=== PATIENT | female | born 1985 | race Caucasian/White ===

== ENCOUNTER 2019-05-07 19:52 | Emergency (ER) | payer BC, OTHER ==
[2019-05-07] MEDS ORDERED: XYLOCAINE 1% HCL 20 ML MDV IJ ONE (19:53)
--- NOTE | 2019-05-07 19:55 | ERPHSYRPT ---
- History of Present Illness Time Seen by Provider: 05/07/19 19:55 Source: patient, family Exam Limitations: no limitations Physician History: This is a 34-year-old white female who presents with sore throat and bilateral earaches. Onset was this morning. Symptoms have worsened throughout the day. Patient denies nausea vomiting diarrhea. She denies chest pain and she denies abdominal pain. However she does have myalgias and arthralgias. She has no known exposures to individuals with flu like symptoms. Patient has history of recurrent strep throat and ear infections. Timing/Duration: today Possible Cause: occasional episodes Associated Symptoms: earache (Bilateral), sore throat, No chest pain/soreness, No cough Allergies/Adverse Reactions: No Known Drug Allergies Allergy (Unverified 06/19/15 19:32) Home Medications: No Home Meds [No Home Meds] 1 ea UD 06/19/15 [History] Hx Tetanus, Diphtheria Vaccination/Date Given: No Hx Influenza Vaccination/Date Given: No Hx Pneumococcal Vaccination/Date Given: No - Review of Systems Constitutional: No Symptoms Eyes: No Symptoms Ears, Nose, & Throat: Ear Pain (Bilateral), Throat Pain Respiratory: No Symptoms Cardiac: No Symptoms Abdominal/Gastrointestinal: No Symptoms Genitourinary Symptoms: No Symptoms Musculoskeletal: No Symptoms Skin: No Symptoms Neurological: No Symptoms Psychological: No Symptoms Endocrine: No Symptoms Hematologic/Lymphatic: No Symptoms Immunological/Allergic: No Symptoms All Other Systems: Reviewed and Negative - Past Medical History Pertinent Past Medical History: Yes Neurological History: No Pertinent History ENT History: No Pertinent History Cardiac History: No Pertinent History Respiratory History: No Pertinent History Endocrine Medical History: No Pertinent History Musculoskeletal History: No Pertinent History GI Medical History: Gallbladder Disease History: No Pertinent History Psycho-Social History: Depression Female Reproductive Disorders: No Pertinent History Other Medical History: DEPRESSION - Past Surgical History Past Surgical History: Yes Neuro Surgical History: No Pertinent History Cardiac: No Pertinent History Respiratory: No Pertinent History Gastrointestinal: Cholecystectomy Genitourinary: No Pertinent History Musculoskeletal: No Pertinent History Female Surgical History: Section Other Surgical History: GALLBLADDER,C-SECTONS - Social History Smoking Status: Current every day smoker How long have you smoked: 15 YEARS Exposure to second hand smoke: No Drug Use: none Patient Lives Alone: No - Nursing Vital Signs Nursing Vital Signs: Initial Vital Signs Temperature 98.1 F 05/07/19 20:19 Pulse Rate 79 05/07/19 20:19 Respiratory Rate 18 05/07/19 20:19 Blood Pressure 134/77 05/07/19 20:19 O2 Sat by Pulse Oximetry 99 05/07/19 20:19 Pain Scale Pain Intensity 8 - Physical Exam General Appearance: no apparent distress, alert, anxiety Eye Exam: PERRL/EOMI, eyes nml inspection Ears, Nose, Throat Exam: TMs normal (Left is red), moist mucous membranes, pharyngeal erythema Neck Exam: normal inspection (Mild), non-tender, supple, full range of motion Respiratory Exam: normal breath sounds, lungs clear, airway intact, No chest tenderness, No respiratory distress Cardiovascular Exam: regular rate/rhythm, normal heart sounds Gastrointestinal/Abdomen Exam: soft, normal bowel sounds, No tenderness Pelvic Exam: not done Rectal Exam: not done Back Exam: normal inspection, normal range of motion, No CVA tenderness, No vertebral tenderness Extremity Exam: normal inspection, normal range of motion, pelvis stable Neurologic Exam: alert, oriented x 3, cooperative, 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 Skin Exam: normal color, warm, dry Lymphatic Exam: No adenopathy SpO2 Interpretation: normal O2 Delivery: Room Air Ordered Tests: Medication Summary Discontinued Medications Generic Name Dose Route Start Last Admin Trade Name Markusq PRN Reason Stop Dose Admin Hydrocodone Bitart/Acetaminophen 10 ml 05/07/19 21:58 Hydrocodone-Acetamin 2.5-108/5 Ml Solution PO 05/07/19 21:59 STAT STA Ceftriaxone Sodium 1,000 mg 05/07/19 21:55 Rocephin 1000 Mg Inj IM 05/07/19 21:56 STAT ONE Methylprednisolone Sodium Succinate 125 mg 05/07/19 21:57 Solu-Medrol 125 Mg IM 05/07/19 21:58 STAT ONE Lab/Rad Data: Laboratory Results 05/07/19 Range/Units Unknown Influenza Type A Ag NEGATIVE (NEGATIVE) Influenza Type B Ag NEGATIVE (NEGATIVE) RSV (PCR) NEGATIVE (Negative) Group A Strep Antibody NEGATIVE (NEGATIVE) - Progress Progress: unchanged Air Movement: good Blood Culture(s) Obtained: No Antibiotics given: Yes Counseled pt/family regarding: lab results, diagnosis, need for follow-up - Departure Departure Disposition: Home Clinical Impression: Pharyngitis, Left otitis media Condition: Stable Critical Care Time: No Additional Instructions: Plenty of fluids. Follow-up with your primary care physician for persistent symptoms Prescriptions: Azithromycin 250 mg [Zithromax 250 MG TABLET] 250 mg PO ZPACK #6 tablet Hydrocodone Bit/Acetaminophen [Hydrocodone-Acetaminophen Soln] 10 ml PO Q6H # 120 ml Prednisone 10 mg [Deltasone 10 mg] 10 mg PO TID #12 tablet
[2019-05-07 21:38] LABS: Group A Strep NEGATIVE (NEGATIVE); INFLUENZA A NEGATIVE (NEGATIVE); INFLUENZA B NEGATIVE (NEGATIVE); RESPIRATORY SYNCTIAL VIRUS NEGATIVE (Negative)
[2019-05-07] MEDS ORDERED: Rocephin 1000 MG INJ IM ONE (21:55)
[2019-05-07] MEDS ORDERED: solu-MEDROL 125 MG IM ONE (21:57)
[2019-05-07] MEDS ORDERED: HYDROCODONE-ACETAMIN 2.5-108/5 ML SOLUTION PO STA (21:58)
[2019-05-07] MEDS ORDERED: Rocephin 1000 MG INJ ONE (22:23)
[2019-05-07] MEDS ORDERED: solu-MEDROL 125 MG ONE (22:23)
[2019-05-07] MEDS ORDERED: HYDROCODONE-ACETAMIN 2.5-108/5 ML SOLUTION ONE (22:23)
[2019-05-07 22:46] VITALS: BP 115/92; PULSE 90; O2SAT 97
== END 2019-05-07 22:52 | disposition home or self-care (01) ==
LOC: ED 19:52
DX: J02.9 Acute pharyngitis, unspecified (principal); H66.92 Otitis media, unspecified, left ear
CPT/HCPCS: 87631; 87651; 96372; 99284; J0696; J2930; A9270-GY

== ENCOUNTER 2020-11-05 11:21 | Emergency (ER) | payer SELFPAY ==
[2020-11-05] MEDS ORDERED: Robitussin AC Syrup Unit Dose Cup PO PRN (12:24)
--- NOTE | 2020-11-05 12:30 | ERPHSYRPT ---
- History of Present Illness Time Seen by Provider: 11/05/20 12:28 Source: patient Exam Limitations: no limitations Patient Subjective Stated Complaint: Pt c/o of headache, N&V, loss of taste and smell, body aches, fatigue, since this AM and a cough and congestion for the past couple of days Triage Nursing Assessment: Pt was brought to the ER by her , vitals wnl, rates overall pain as 6/10, chest pain when she coughs, body aches, N&V, fa tigue, congestion, pulses normal, skin n/w/d, doesn't appear to be in any distress Physician History: Pt c/o of headache, N&V, loss of taste and smell, body aches, fatigue, since this AM and a cough and congestion for the past couple of days. Denies any COVID exposure, No COVID Vaccine Timing/Duration: day(s) (past two days) Severity: moderate Associated Symptoms: nausea, vomiting, headaches, malaise Allergies/Adverse Reactions: No Known Drug Allergies Allergy (Verified 11/05/20 11:36) Hx Tetanus, Diphtheria Vaccination/Date Given: No Hx Influenza Vaccination/Date Given: No Hx Pneumococcal Vaccination/Date Given: No Travel Risk - International Travel Have you traveled outside of the country in past 3 weeks: No - Coronavirus Screening Are you exhibiting any of the following symptoms?: Yes Symptoms: Cough: New Onset, Shortness of Breath, Vomiting/Diarrhea, Loss of Taste or Smell, Headaches/Body Aches/Fatigue - Vaccine Status Have you recieved a Covid-19 vaccination: No - Review of Systems Constitutional: Malaise, No Fever, No Chills Eyes: No Symptoms Ears, Nose, & Throat: No Symptoms Respiratory: No Cough, No Dyspnea Cardiac: No Chest Pain, No Edema, No Syncope Abdominal/Gastrointestinal: Nausea, Vomiting, No Abdominal Pain, No Diarrhea Genitourinary Symptoms: No Dysuria Musculoskeletal: No Back Pain, No Neck Pain Skin: No Rash Neurological: No Dizziness, No Focal Weakness, No Sensory Changes Psychological: No Symptoms Endocrine: No Symptoms All Other Systems: Reviewed and Negative - Past Medical History Pertinent Past Medical History: Yes Neurological History: No Pertinent History ENT History: No Pertinent History Cardiac History: No Pertinent History Respiratory History: No Pertinent History Endocrine Medical History: No Pertinent History Musculoskeletal History: No Pertinent History GI Medical History: Gallbladder Disease History: No Pertinent History Psycho-Social History: Depression Female Reproductive Disorders: No Pertinent History Other Medical History: DEPRESSION - Past Surgical History Past Surgical History: Yes Neuro Surgical History: No Pertinent History Cardiac: No Pertinent History Respiratory: No Pertinent History Gastrointestinal: Cholecystectomy Genitourinary: No Pertinent History Musculoskeletal: No Pertinent History Female Surgical History: Section Other Surgical History: GALLBLADDER,C-SECTONS - Social History Smoking Status: Current every day smoker How long have you smoked: 15 YEARS Exposure to second hand smoke: Yes Drug Use: none Patient Lives Alone: No - Female History Hx Last Menstrual Period: 11/02/2020 Hx Now: No - Nursing Vital Signs Nursing Vital Signs: Initial Vital Signs Temperature 98.2 F 11/05/20 11:27 Pulse Rate 75 11/05/20 11:27 Blood Pressure 135/84 11/05/20 11:27 O2 Sat by Pulse Oximetry 99 11/05/20 11:27 Pain Scale Pain Intensity 6 - Physical Exam General Appearance: no apparent distress, alert Eye Exam: PERRL/EOMI, eyes nml inspection Ears, Nose, Throat Exam: normal ENT inspection, TMs normal, pharynx normal, moist mucous membranes Neck Exam: normal inspection, non-tender, supple, full range of motion Respiratory Exam: diminished breath sounds, wheezing, No respiratory distress Cardiovascular Exam: regular rate/rhythm, normal heart sounds, normal peripheral pulses Gastrointestinal/Abdomen Exam: soft, normal bowel sounds, No tenderness, No mass Back Exam: normal inspection, normal range of motion, No CVA tenderness, No vertebral tenderness Extremity Exam: normal inspection, normal range of motion, pelvis stable Neurologic Exam: alert, oriented x 3, cooperative, normal mood/affect, nml cerebellar function, nml station & gait, sensation nml, No motor deficits Skin Exam: normal color, warm, dry, No rash Lymphatic Exam: No adenopathy SpO2: 99 - Course Nursing assessment & vital signs reviewed: Yes - Radiology Exams Chest X-ray Interpretation: Reviewed by me (no acute infiltrate) Ordered Tests: Active Orders 24 hr Category Date Time Status Isolation, Initiate & Maintain STAT Care 11/05/20 12:21 Active CHEST 1 VIEW (PORTABLE) Stat Exams 11/05/20 12:23 Taken CBC Stat Lab 11/05/20 13:00 Completed CMP Stat Lab 11/05/20 13:00 Completed D-DIMER QUANTITATIVE Stat Lab 11/05/20 13:00 Completed Medication Summary Generic Name Dose Route Start Last Admin Trade Name Freq PRN Reason Stop Dose Admin Guaifenesin/Codeine Phosphate 10 ml 11/05/20 12:24 Robitussin Ac Syrup Unit Dose Cup PO 12/05/20 12:23 QIDP PRN COUGH Lab/Rad Data: Laboratory Result Diagrams 11/05/20 13:00 11/05/20 13:00 Laboratory Results 11/05/20 11/05/20 11/05/20 Range/Units 13:00 13:00 13:00 WBC 7.9 (4.0-10.5) K/mm3 RBC 4.49 (4.1-5.4) M/mm3 Hgb 14.6 (12.0-16.0) gm/dl Hct 43.0 (35-47) % MCV 95.8 (78-100) fl MCH 32.5 H (26-32) pg MCHC 34.0 (32-36) g/dl RDW 12.5 (11.5-14.0) % Plt Count 262 (150-450) K/mm3 MPV 9.8 (7.5-11.0) fl D-Dimer 557 H* (215-500) ng/mL Sodium 141 (137-145) mmol/L Potassium 4.0 (3.5-5.1) mmol/L Chloride 107 (98-107) mmol/L Carbon Dioxide 24 (22-30) mmol/L Anion Gap 14.4 (5-15) MEQ/L BUN 7 (7-17) mg/dL Creatinine 0.76 (0.52-1.04) mg/dL Estimated GFR > 60.0 ML/MIN Glucose 90 (74-106) mg/dL Calcium 8.7 (8.4-10.2) mg/dL Total Bilirubin 0.30 (0.2-1.3) mg/dL AST 42 H (14-36) U/L ALT 30 (0-35) U/L Alkaline Phosphatase 84 (38-126) U/L Serum Total Protein 7.6 (6.3-8.2) g/dL Albumin 4.3 (3.5-5.0) g/dL - Progress Progress: improved Counseled pt/family regarding: lab results, diagnosis, need for follow-up, rad results - Departure Departure Disposition: Home Clinical Impression: Suspected COVID-19 virus infection Condition: Stable Critical Care Time: No Referrals: CLARK ARTHUR [Primary Care Provider] - Follow Up with PCP/3 days Instructions: Coronavirus Disease 2019 (COVID-19) (DC) Additional Instructions: Discharge/Care Plan LORELEI BASS was seen on 11/05/20 in the Emergency Room. The patient was counseled regarding Diagnosis,Lab results, Imaging studies, need for follow up and when to return to the Emergency Room. Prescriptions given: Discharge Note I have spoken with the patient and/or caregivers. I have explained the patient's condition, diagnosis and treatment plan based on the information available to me at this time. I have answered the patient's and/or caregiver's questions and addressed any concerns. The patient and/or caregivers have as good understanding of the patient's diagnosis, condition and treatment plan as can be expected at this point. The vital signs have been stable. The patient's condition is stable and appropriate for discharge from the emergency department. The patient will pursue further outpatient evaluation with the primary care physician or other designated or consulting physician as outlined in the discharge instructions. The patient and/or caregivers are agreeable to this plan of care and follow-up instructions have been explained in detail. The patient and/or caregivers have received these instruction. The patient/and or caregivers are aware that any significant change in condition or worsening of symptoms should prompt an immediate return to this or the closest emergency department or call 911. LORELEI BASS was seen on 11/05/20 n the Emergency Room. At that time you were treated for an emergent condition, during your visit Laboratory, Radiology and/or other procedures may have been ordered. It is very important that you follow-up with your Primary Care Physician CLARK ARTHUR within the next 24-48 hours to review your Emergency Room visit and the final results of testing that was ordered. Some test results such as Urine Cultures, Blood Cultures, and other cultures if ordered will not be finalized for 24-48 hours. If you do not have a Primary Care Provider please call the medical records department at [phone] to obtain a copy of your results or you may sign into our patient portal to obtain these results by visiting us @ [email or web address] and completing the following steps: 1. Click on the Patient Portal link 2. Click the Patient Self Enrollment Link to complete the enrollment form and entering your 3. Once the enrollment form is completed you will receive an email with a temporary ID and password at the email address you provided. 4. Next choose a user name and password. Your user name must be at least 4 characters long and your password must be at least 4 characters long. 5. Choose a security question from the list and provide your answer to the question. If you already have signed into the Health Portal you may access your Health Care Information 30/09 by the following steps: 1. Login to our website @ [email or web address] 2. Enter your original user name and password. FAQS [facility] Health Portal is an online tool that contains your Lab Results, Radiology Reports, Visit History, Discharge Instructions and Health Summary Lab and Radiology Results will not be available for 72 hours on the portal. The Portal is a secure site, passwords are encryted and URLs are re-written so they cannot be copied and pasted. You and authorized family members are the only ones who can access your Portal. Also there is a timeout feature that protects your information if you leave the Portal page open. If you have technical difficulty please use the Contact Us link on the page this will allow you to submit any questions you have regarding the Portal or you may contact the Medical Record Department at [phone]. Prescriptions: Methylprednisolone Packet [Medrol Dosepack] 4 mg PO UD #30 packet Guaifenesin/Dextromethorphan [Mucinex Dm ER 600-30 mg Tablet] 1 each PO BID #20 tablet Azithromycin [Zithromax] 250 mg PO UD #6 tablet
[2020-11-05 13:12] LABS: Hemoglobin 14.6 gm/dl (12.0-16.0); Mean Cell Volume 95.8 fl (78-100); Mean Corpuscular Hemoglobin 32.5 pg (26-32); Mean Platelet Volume 9.8 fl (7.5-11.0); Platelet Count 262 K/mm3 (150-450); Red Blood Count 4.49 M/mm3 (4.1-5.4); Red Cell Distribution Width 12.5 % (11.5-14.0); White Blood Count 7.9 K/mm3 (4.0-10.5)
[2020-11-05 13:20] LABS: ALBUMIN 4.3 g/dL (3.5-5.0); ALKALINE PHOSPHATASE 84 U/L (38-126); ANION GAP 14.4 MEQ/L (5-15); BLOOD UREA NITROGEN 7 mg/dL (7-17); CHLORIDE 107 mmol/L (98-107); Calcium 8.7 mg/dL (8.4-10.2); Carbon Dioxide 24 mmol/L (22-30); Creatinine 1 0.76 mg/dL (0.52-1.04); EST GLOMERULAR FILTRATION RATE > 60.0 ML/MIN; Glucose 90 mg/dL (74-106); SGOT/AST 42 U/L (14-36); SGPT/ALT 30 U/L (0-35); SODIUM 141 mmol/L (137-145); Total Protein 7.6 g/dL (6.3-8.2)
[2020-11-05] MEDS ORDERED: Rocephin 1000 MG INJ IM ONE (13:30)
[2020-11-05] MEDS ORDERED: Rocephin 1000 MG INJ ONE (13:44)
[2020-11-05] MEDS ORDERED: XYLOCAINE 1% HCL 20 ML MDV ONE (13:44)
[2020-11-05] MEDS ORDERED: Robitussin AC Syrup Unit Dose Cup ONE (13:44)
[2020-11-05 14:44] VITALS: BP 144/96; PULSE 70; O2SAT 98
--- NOTE | 2020-11-05 18:54 | XRAY ---
Indication: Cough. Suspect covid 19. Comparison: None Portable chest clear. Heart and mediastinal structures within normal limits. Bony thorax intact. Impression: Nonacute chest.
== END 2020-11-05 14:44 | disposition home or self-care (01) ==
LOC: ED 11:21
DX: Z20.822 Contact with and (suspected) exposure to COVID-19 (principal); R51.9 Headache, unspecified; R11.2 Nausea with vomiting, unspecified; R53.83 Other fatigue; R43.8 Other disturbances of smell and taste
CPT/HCPCS: 36415; 71045; 80053; 85027; 85379; 96372; 99284; U0003; J0696; A9270-GY